=== PATIENT | male | born 1960 | race Caucasian/White ===

== ENCOUNTER → 2022-12-12 14:01 | Outpatient (BNVA) | payer SELFPAY | PROVIDERS: PCP Family Medicine; Visit Provider Family Medicine | DX: R07.9 Chest pain, unspecified (principal); R53.83 Other fatigue; Z79.899 Other long term (current) drug therapy | CPT/HCPCS: 71046; 82306; 82607; 83540; 84403; 84443; 85025 ==

== ENCOUNTER → 2024-01-11 15:46 | Outpatient (BNVA) | payer SELFPAY | PROVIDERS: PCP Family Medicine; Visit Provider Nurse Practitioner Family | DX: R07.9 Chest pain, unspecified (principal); R06.09 Other forms of dyspnea; I10 Essential (primary) hypertension; E78.5 Hyperlipidemia, unspecified; F10.20 Alcohol dependence, uncomplicated; R00.2 Palpitations | CPT/HCPCS: 93005 ==

== ENCOUNTER 2024-01-15 09:27 | Observation (INO) | payer SELFPAY ==
[2024-01-15] VITALS (13 sets, daily range): BP systolic 102–122; BP diastolic 73–82; PULSE 57–116; RESP 13–22; TEMP 36.4–36.9; O2SAT 96–100; BMI 20.9
--- NOTE | 2024-01-15 09:28 | ECG_ITS ---
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 Measurements Intervals [place] Rate: 73 P: 75 [place]: 180 QRS: 67 QRSD: 87 T: 61 QT: 364 QTc: 401 Interpretive Statements SINUS RHYTHM POSSIBLE LEFT ATRIAL ENLARGEMENT [-0.1mV P-WAVE IN V1/V2] POSSIBLE LEFT VENTRICULAR HYPERTROPHY [VOLTAGE CRITERIA PLUS LAE OR QRS WIDENING] No previous ECG available for comparison Electronically Signed On 01-15-2024 9:43:51 CDT by Cameron Villalobos M.D. [id number]
--- NOTE | 2024-01-15 09:28 | XRR_ITS ---
PROCEDURE INFORMATION: Exam: XR Chest Exam date and time: 01/15/2024 9:44 AM Age: 63 years old Clinical indication: Pain; Angina pectoris; Additional info: Chest pain TECHNIQUE: Imaging protocol: Radiologic exam of the chest. Views: 1 view. COMPARISON: CR XR chest 2V* [id number] 12/12/2022 2:06 PM FINDINGS: Lungs: Unremarkable. No consolidation. Pleural spaces: Unremarkable. No pleural effusion. No pneumothorax. Heart/Mediastinum: Unremarkable. No cardiomegaly. Bones/joints: Unremarkable. Other findings: Tiny scattered calcified granulomata. XR/XR chest 1V portable [id number] IMPRESSION: No acute findings.
[2024-01-15 10:25] LABS: Basophils % 0.7 %; Eosinophils # 0.1 10^3/uL (0.0-0.8); Hematocrit 45.9 % (37-53); Lymphocytes # 1.9 10^3/uL (0.8-4.8); Lymphocytes % 30.8 %; Mean Corpuscular HGB Conc 33.6 g/dL (30-55); Mean Corpuscular Hemoglobin 31.2 pg (27-33); Mean Corpuscular Volume 92.9 fl (82-101); Mean Platelet Volume 8.7 fL (7.4-10.4); Monocytes # 0.5 10^3/uL (0.2-0.9); Monocytes % 8.1 %; Neutrophils # 3.56 10^3/uL (1.8-7.7); Neutrophils % 59.1 %; Nucleated Red Blood Cells % 0 %; Platelet Count 228 10^3/cmm (157-399); Red Blood Count 4.94 10^6/uL (3.85-5.65); Red Cell Distribution Width 11.7 % (12.1-15.1); White Blood Count 6.03 10^3/uL (3.29-11.43)
--- NOTE | 2024-01-15 10:36 | ED_ITS ---
HPI - Chest Pain 2 General: Chief Complaint: Chest Pain Stated Complaint: cp Time Seen by Provider: 01/15/24 10:23 Source: patient Mode of arrival: ambulatory Limitations: no limitations History of Present Illness: Patient is a nice 63-year-old male who presents to ED today with a complaint of intermittent chest pain and shortness of breath over the past 3 weeks or so. He feels like symptoms are progressively worsening. He states he is very active and feels like his symptoms are now limiting this. 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 He reports pain in the left side of his chest without radiation. He feels like it is achy and bruised like . Patient has no known history of cardiac disease. He does have a history of hypertension. Recently had labs drawn through PCP does show an elevated LDL. He is not a smoker. MD complaint: chest pain Onset (ago): week(s) Timing of current episode: episodic Prior episodes: Yes Onset: during exertion Pain location: left chest Pain radiation: none Severity: moderate Quality: aching and heaviness Relieving factors: rest Exacerbating factors: exertion Associated symptoms: Reports dyspnea; Deny abdominal pain, fever(s), nausea, palpitations, syncope or vomiting Treatment prior to arrival: none Risk Factors: Coronary artery disease risk factors: hyperlipidemia and hypertension Thoracic aortic dissection risk factors: none Review of Systems 2 Const: Denies: fever(s), chills, body aches, fatigue or malaise Eyes: Denies: change in vision or blurry vision Card: Reports: chest pain and dyspnea on exertion; Denies: palpitations, irregular heart rhythm, edema, swelling of feet/ankles, lightheadedness, syncope, pre-syncope, orthopnea, leg pain with exertion or acrocyanosis Resp: Reports: dyspnea; Denies: productive cough or pain on inspiration GI: Denies: abdominal pain, nausea, vomiting, heartburn or diarrhea : Denies: flank pain, difficulty urinating, dysuria, urinary frequency, urinary urgency or urinary hesitancy Musc: Denies: neck pain, back pain, extremity pain, extremity swelling or joint pain Skin/Breast: Denies: rash Neuro: Denies: headache(s), numbness in extremities, weakness in extremities, sensory changes or dizziness PFSH ED 2 PFSH: Medical History H/O: hypertension H/O hyperlipidemia Surgical History No pertinent past surgical history Family History Mother Cancer Other Aneurysm Hypertension Social History Smoking and tobacco/nicotine status: never used tobacco/nicotine Alcohol intake: current Alcohol intake frequency: 3 or more drinks per day Alcohol type: hard liquor Substance/Drug Use: never Physical Exam 2 Const: COMMON NORMALS: no acute distress, average body habitus, patient oriented x3, no limitations, healthy appearing, alert and well nourished G ENERAL APPEARANCE: cooperative ORIENTATION/CONSCIOUSNESS: Yes awake, Yes oriented to person, Yes oriented to place and Yes oriented to time HENMT: COMMON NORMALS: normocephalic and atraumatic HEAD & SCALP: normal to inspection, normocephalic and atraumatic Neck/C-Spine: COMMON NORMALS: full ROM, no lymphadenopathy, supple and no meningeal signs Chest: COMMONS NORMALS: normal inspection of the chest and normal palpation of entire chest wall Resp: COMMON NORMALS: normal respiratory effort and clear to auscultation bilaterally AUSCULTATION: clear to auscultation bilaterally Cardio: COMMON NORMALS: regular rate and regular rhythm RATE: regular rate RHYTHM: regular rhythm GI: COMMON NORMALS: Normal to inspection, nondistended, normoactive bowel sounds present, Soft to palpation, non-tender, No hepatosplenomegaly present and no masses PALPATION: Yes Soft to palpation and Yes No hepatosplenomegaly present : COMMON NORMALS: Yes no CVA tenderness BLADDER/KIDNEY EXAM: Yes no CVA tenderness Back/Pelvis: COMMON NORMALS: no CVA tenderness and thoracic and lumbar spine normal to inspection Extremity: COMMON NORMALS: normal to inspection GENERAL: Yes normal exam except as noted Neuro: ARGENIS COMA SCALE: document GCS findings Argenis coma scale eye opening: Spontaneous [place] coma scale verbal response: Orientated Argenis coma scale motor response: Obey commands [place] coma scale total score: 15 COMMON NORMALS: patient oriented x3, CN's II-XII intact bilaterally, moves all extremities, no focal motor deficits and no sensory deficits noted S ENSORIUM/ORIENTATION: Yes alert, Yes oriented to person, Yes oriented to place and Yes oriented to time MENINGEAL SIGNS: Yes no meningeal signs Skin: COMMON NORMALS: no rashes or lesions noted GENERAL SKIN EXAM: no rashes or lesions noted Course 2 Consultations: Consultation #1: Dr. Hernandez?accepts hospitalization Vital Signs: Vital signs: Vital Signs Temperature 97.5 F L 01/15/24 09:37 Pulse Rate 66 01/15/24 12:00 Respiratory Rate 22 H 01/15/24 12:00 Blood Pressure 107/73 01/15/24 12:00 Pulse Oximetry 98 01/15/24 12:00 Oxygen Delivery Me thod Room Air 01/15/24 12:00 MDM - Chest Pain Medical Decision Making Patient is a nice 63-year-old male with PMH significant for hyperlipidemia and hypertension here for concerns of chest pain and shortness of breath brought on by exertion and alleviated by rest. He was seen by PCP approximately 4 days ago for similar symptoms. He is here today due to continued worsening. EKG are nonischemic. His troponins are normal. Given his history and risk factors I think it is reasonable for hospitalization for cardiac rule out. Spoke to Dr. Wong who agrees with plan at this time. I spoke to hospitalist Dr. Hernandez who will admit. Medical Records I reviewed the patient's medical records. Lab Data I reviewed the patient's lab results. 01/15/24 10:10 01/15/24 10:10 Radiology Impressions Chest X-Ray 01/15/24 09:28 IMPRESSION: No acute findings. Laboratory Results WBC 6.03 10^3/uL (3.29-11.43) 01/15/24 10:10 RBC 4.94 10^6/uL (3.85-5.65) 01/15/24 10:10 Hgb 15.40 g/dL (11.27-16.99) 01/15/24 10:10 Hct 45.9 % (37-53) 01/15/24 10:10 MCV 92.9 fl (82-101) 01/15/24 10:10 MCH 31.2 pg (27-33) 01/15/24 10:10 MCHC 33.6 g/dL (30-55) 01/15/24 10:10 RDW 11.7 % (12.1-15.1) L 01/15/24 10:10 Plt Count 228 10^3/cmm (157-399) 01/15/24 10:10 MPV 8.7 fL (7.4-10.4) 01/15/24 10:10 Neut % (Auto) 59.1 % 01/15/24 10:10 Lymph % (Auto) 30.8 % 01/15/24 10:10 [place] % (Auto) 8.1 % 01/15/24 10:10 Eos % (Auto) 1.0 % 01/15/24 10:10 Baso % (Auto) 0.7 % 01/15/24 10:10 Neut # (Auto) 3.56 10^3/uL (1.8-7.7) 01/15/24 10:10 Lymph # (Auto) 1.9 10^3/uL (0.8-4.8) 01/15/24 10:10 [place] # (Auto) 0.5 10^3/uL (0.2-0.9) 01/15/24 10:10 Eos # (Auto) 0.1 10^3/uL (0.0-0.8) 01/15/24 10:10 Baso # (Auto) 0.0 10^3/uL (0.0-0.1) 01/15/24 10:10 Nucleated RBC % (auto) 0 % 01/15/24 10:10 Nucleated RBCs # 0.0 /100WBC 01/15/24 10:10 D-Dimer 0.36 ug/mLFEU (0-0.59) 01/15/24 10:10 Sodium 136 mmol/L (136-145) 01/15/24 10:10 Potassium 4.5 mmol/L (3.5-5.1) 01/15/24 10:10 Chloride 98 mmol/L (98-107) 01/15/24 10:10 Carbon Dioxide 26 mmol/L (22-29) 01/15/24 10:10 Anion Gap 16.5 (5-19) 01/15/24 10:10 BUN 22 mg/dL (8-23) 01/15/24 10:10 Creatinine 0.8 mg/dL (0.7-1.2) 01/15/24 10:10 GFR Calculation 98.0 mL/min (90-130) 01/15/24 10:10 Glucose 99 mg/dL (65-115) 01/15/24 10:10 Calculated Osmolality 285 mOsm/kg (285-295) 01/15/24 10:10 Calcium 9.3 mg/dL (8.5-10.5) 01/15/24 10:10 Total Bilirubin 0.7 mg/dL (0.15-1.2) 01/15/24 10:10 AST 26 U/L (0-40) 01/15/24 10:10 ALT 25 U/L (0-41) 01/15/24 10:10 Alkaline Phosphatase 88 U/L (40-130) 01/15/24 10:10 Troponin T Baseline 9 ng/L (0-15) 01/15/24 10:10 Troponin T 120 Minute 9.15 ng/L (0-15) 01/15/24 11:34 Delta Troponin T 0.15 ABS# (0-10) 01/15/24 11:34 Total Protein 7.2 g/dL (6.6-8.7) 01/15/24 10:10 Albumin 4.6 g/dL (3.5-5.2) 01/15/24 10:10 Globulin 2.6 g/dL (1.3-4.6) 01/15/24 10:10 All radiology interpretation(s) finalized by discharge Discharge Plan Discharge Patient Disposition: Admitted As Inpatient Clinical Impression: Chest pain Qualifiers: Chest pain type: unspecified Qualified Code(s): R07.9 - Chest pain, unspecified HTN (hypertension) Qualifiers: Hypertension type: primary hypertension Qualified Code(s): I10 - Essential (primary) hypertension Hyperlipidemia Qualifiers: Hyperlipidemia type: unspecified Qualified Code(s): E78.5 - Hyperlipidemia, unspecified Condition: Stable Prescriptions: No Action lisinopril 40 mg tablet 40 mg PO DAILY sildenafil [Viagra] 25 mg tablet 25 mg PO DAILY MDD ERECTILE DYSFUNCTION PRN (Reason: Edema) Rx Instructions: administer 30 minutes to 4 hours before activity Aspir-81 81 mg Tablet,Delayed Release (Dr/Ec) 81 mg PO DAILY Referrals: Lindsay Hay MD [Primary Care Provider] - Patient Instructions: Opioid Safety, Pain Management Coding Level of Care Code ED Windows Software Engineer for Karlie Rizo
[2024-01-15 10:48] LABS: Alanine Aminotransferase 25 U/L (0-41); Albumin Level 4.6 g/dL (3.5-5.2); Alkaline Phosphatase 88 U/L (40-130); Anion Gap 16.5 (5-19); Aspartate Amino Transferase 26 U/L (0-40); Blood Urea Nitrogen 22 mg/dL (8-23); Calcium 9.3 mg/dL (8.5-10.5); Carbon Dioxide 26 mmol/L (22-29); Chloride 98 mmol/L (98-107); Globulin 2.6 g/dL (1.3-4.6); Glucose 99 mg/dL (65-115); Osmolality Calculated 285 mOsm/kg (285-295); Potassium 4.5 mmol/L (3.5-5.1); Sodium 136 mmol/L (136-145); Total Bilirubin 0.7 mg/dL (0.15-1.2); Total Protein 7.2 g/dL (6.6-8.7)
[2024-01-15 10:51] LABS: Troponin(5th) Baseline 9 ng/L (0-15)
--- NOTE | 2024-01-15 11:28 | ECG_ITS ---
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 Measurements Intervals [place] Rate: 62 P: 55 [place]: 184 QRS: 61 QRSD: 87 T: 58 QT: 402 QTc: 411 Interpretive Statements SINUS RHYTHM MINIMAL VOLTAGE CRITERIA FOR LVH, CONSIDER NORMAL VARIANT [MEETS CRITERIA IN ONE OF: R(aVL), S(V1), R(V5), R(V5/V6)+S(V1)] Compared to ECG 01/15/2024 09:31:31 No significant changes Electronically Signed On 01-15-2024 14:22:03 CDT by Cameron Villalobos M.D. [email or web address] [email or web address] residential centerKrillion[facility].[employer])/store/OM/[id number]
[2024-01-15 12:03] LABS: Troponin 5 2HR 9.15 ng/L (0-15); Troponin 5 2HR Delta 0.15 ABS# (0-10)
[2024-01-15 12:25] LABS: D Dimer 0.36 ug/mLFEU (0-0.59)
--- NOTE | 2024-01-15 13:57 | P.HP_ITS ---
Providers/Chief Complaint 2 Admitting Physician: Kayleen Hernandez MD Primary Care Provider: Lindsay Hay MD Chief Complaint: cp History of Present Illness Jerome Land is a 63 year old male who has been experiencing chest pain for the last 4 to 6 weeks stating that he has been very active throughout his life, lately has been working hard in hot and humid conditions and outdoors during physical activity he would get chest pain that would ease up at rest. He would get hot and sweaty but did not denies any nausea vomiting. He describing the chest pain as getting short of breath. It would last less than 10 minutes. He has not since any syncopal events, does not take any medications, he was on aspirin and lisinopril. Had stress test done 6 to 7 years ago at [place] which was negative. No family history of sudden cardiac arrest. Patient does not have diabetes stating that he has been getting Viagra for erectile dysfunction. Review of Systems 2 Const: Denies: fever(s) Eyes: Denies: change in vision ENMT: Denies: throat pain Card: Reports: chest pain Resp: Reports: dyspnea GI: Denies: abdominal pain : Denies: flank pain Medications/Allergies Home Medications Medication Instructions Recorded Confirmed Last Taken Type lisinopril 40 mg tablet 40 mg PO DAILY 01/11/24 01/15/24 01/15/24 History sildenafil 25 mg tablet (Viagra) 25 mg PO DAILY PRN Edema 01/11/24 01/15/24 Unknown History aspirin 81 mg tablet,delayed 81 mg PO DAILY 01/15/24 01/15/24 01/15/24 History release Allergies Allergy/AdvReac Type Severity Reaction Status Date / Time No Known Allergies Allergy Verified 01/15/24 09:41 PFSH Acute 2 PFSH: Medical History H/O: hypertension H/O hyperlipidemia Surgical History No pertinent past surgical history Family History Mother Cancer Other Aneurysm Hypertension Social History Smoking and tobacco/nicotine status: never used tobacco/nicotine Alcohol intake: current Alcohol intake frequency: 3 or more drinks per day Alcohol type: hard liquor Substance/Drug Use: never Vitals/I&O/Wt Last Vital Signs Temp 97.5 F L 01/15/24 09:37 Pulse 65 01/15/24 13:30 Resp 16 01/15/24 13:30 BP 102/75 01/15/24 13:00 Pulse Ox 99 01/15/24 13:30 O2 Del Method Room Air 01/15/24 13:30 Weight last 48 hrs Weight 70.307 kg Physical Exam 2 Narrative: Awake and alert Euvolemic Well-built Hemodynamically stable Heart rate in 60s Sinus rhythm No active chest pain Nonreproducible pain Nonfocal neuroexam Pleasant cooperative S1, S2 Afebrile Data 01/15/24 10:10 01/15/24 10:10 A&P Assessment and plan (1) Unstable angina: (2) HTN (hypertension): Qualifiers: Hypertension type: primary hypertension Qualified Code(s): I10 - Essential (primary) hypertension (3) Chest pain: Qualifiers: Chest pain type: unspecified Qualified Code(s): R07.9 - Chest pain, unspecified (4) FARRAR (dyspnea on exertion): (5) Fatigue: Plan Unstable angina Multiple risk factors for coronary disease Age, hypertension, chest pain on exertion Will request treadmill stress test in the morning Requested echo EKG showing sinus rhythm echo requested Check B12 TSH, D-dimer unremarkable N.p.o. after midnight DVT prophylaxis: Lovenox Patient carries history of hypertension currently he is not hypotensive I will hold off on continuing lisinopril 40 mg at this time Erectile dysfunction: Patient is stating that Viagra is not helping him either Full code Attestations 2 Medical Necessity Statement*: Anticipating discharge within 48 hours Diagnoses Unstable angina I20.0 Primary hypertension I10 Hypertension type: primary hypertension Chest pain, unspecified type R07.9 Chest pain type: unspecified FARRAR (dyspnea on exertion) R06.09 Fatigue R53.83
--- NOTE | 2024-01-15 14:02 | PC.NURSE ---
attempted report [id number] to espinoza nurse to call back.
--- NOTE | 2024-01-15 14:36 | USCV_ITS ---
Jerome Land Age: 63 Gender: M : 1960 Exam Date: 01/15/2024 17:18 Ordering Phys: Kayleen Hernandez MD Technologist: CT Exam Location[place] [facility] [place] Indication: cp BP: 110 / 80 HR: 62 Rhythm: Sinus Technical Quality: Adequate MEASUREMENTS (Male / Female) Normal Values 2D ECHO LVOT Diameter 2.2 cm LV Ejection Fraction MOD 4C 68.0 % LV Ejection Fraction MOD 2C 68.1 % LV Ejection Fraction 2C AL 69.1 % LA Diameter 3.4 cm RA Systolic Volume 4C AL 34.1 ml RA Systolic Volume 4C MOD 33.0 ml LA Sys Volume AL 33.9 cm cubed LA Sys Volume Index AL 18.0 cm cubed/m squared Aorta at Sinotubular Diameter 2.9 cm IVC Diameter 1.1 cm M-MODE LA Ao Ratio MM 1.1 AV Cusp Separation MM 2.4 cm DOPPLER AV Peak Velocity 124.0 cm/s LVOT Peak Velocity 99.0 cm/s AV Area Cont Eq vti 3.6 cm squared AV Area Cont Eq pk 3.1 cm squared MV Peak Velocity 75.0 cm/s MV Area PHT 3.0 cm squared Mitral E to A Ratio 1.1 TR Peak Velocity 181.0 cm/s TR Peak Gradient 13.1 mmHg TV Peak E Velocity 66.0 cm/s Right Atrial Pressure 3.0 mmHg Pulmonary Artery Systolic Pressu 16.1 mmHg PV Peak Velocity 90.0 cm/s FINDINGS Left Ventricle Normal left ventricular size and systolic function, EF 68%. . No regional wall motion abnormalities. Right Ventricle The right ventricle is normal in size and function. Right Atrium The right atrium is normal in size. Left Atrium The left atrium is normal in size. Mitral Valve Trace mitral valve regurgitation. Aortic Valve Thickened aortic valve. Tricuspid Valve No gross abnormalities noted Pulmonic Valve No gross abnormalities noted Pericardium Normal pericardium without effusion. Aorta Normal ascending aorta dimension. IVC The inferior vena cava appears normal. CONCLUSIONS Normal left ventricular size and systolic function, EF 68%. . No regional wall motion abnormalities. Thickened aortic valve. Trace mitral valve regurgitation. There is no pericardial effusion. There are no intracardiac masses. No similar previous studies are available for comparison Dr Nitin Jeffrey MD [facility] (Electronically Signed) Final Date: 16 January 2024 11:37 S
--- NOTE | 2024-01-15 15:28 | ECG_ITS ---
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 Measurements Intervals [place] Rate: 57 P: 52 [place]: 193 QRS: 59 QRSD: 89 T: 50 QT: 423 QTc: 415 Interpretive Statements SINUS BRADYCARDIA MINIMAL VOLTAGE CRITERIA FOR LVH, CONSIDER NORMAL VARIANT [MEETS CRITERIA IN ONE OF: R(aVL), S(V1), R(V5), R(V5/V6)+S(V1)] Compared to ECG 01/15/2024 11:28:32 Sinus rhythm no longer present Electronically Signed On 01-15-2024 23:27:50 CDT by Cameron Villalobos M.D. [email or web address] App Review [facility].[employer]/store/OM/[id number]
[2024-01-15] MEDS: enoxaparin 40 mg/0.4 mL Syringe SUBCUT (15:36)
[2024-01-15 15:48] LABS: Estmated Average Glucose 114; Hemoglobin A1C 5.6 % (4.0-6.0)
[2024-01-15 15:54] LABS: Thyroid Stimulating Hormone 0.93 uIU/mL (0.27-4.20); Vitamin B12 1541 pg/mL (232-1245)
[2024-01-15 16:24] LABS: Troponin 5 6HR 8.48 ng/L (0-15)
[2024-01-15 16:28] LABS: Troponin 5 6HR Delta -0.52 ng/L (0-12)
--- NOTE | 2024-01-15 17:18 | PC.NURSE ---
US in to perform ECHO at this time. Patient denies needs or pain presently.
--- NOTE | 2024-01-16 | ECG_ITS ---
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 Interpretive Statements NAME OF STUDY: EXERCISE SESTAMIBI STRESS TEST INDICATION: UA, PROCEDURE: The baseline electrocardiogram showed normal sinus rhythm with normal ST-Ts. At the baseline, the patient's blood pressure was 124/90 mm Hg with a heart rate of 71. The patient exercised for 9 minutes on a standard Loyd protocol. Patient attained a maximum heart rate of 148 beats per minute(93% of the maximum predicted heart rate) with a blood pressure at the peak exercise of 153/105 mm Hg. The EKG at the peak exercise revealed no significant changes. Patient did not have any chest pain or any significant arrhythmis with the exercise Sestamibi was injected 1 minute prior to the peak exercise During the recovery phase, there were no new changes. Blood pressure at the end of the recovery phase was 143/95 mm Hg with a heart rate of 103 per minute. CONCLUSION: 1. No significant EKG changes with the [treadmill exercise 2. No exercise-induced chest pain or cardiac arrhythmia 3. Fair exercise tolerance, attained a maximum of 10.2 METs 4. Sestamibi/Sestamibi perfusion results pending; see separate report. Electronically Signed On 01-16-2024 9:56:39 CDT by Nitin Jeffrey M.D. [id number]
[2024-01-16 03:19] VITALS: BP 120/79; PULSE 57; RESP 18; O2SAT 97
[2024-01-16 05:13] VITALS: PULSE 58
[2024-01-16 05:38] LABS: Magnesium 2.2 mg/dL (1.7-2.3)
[2024-01-16 07:58] VITALS: BP 143/95; PULSE 102
[2024-01-16 08:00] VITALS: BP 107/74; PULSE 68; RESP 15; TEMP 36.7; O2SAT 98
[2024-01-16] MEDS: aspirin 81 mg EC Tablet PO (08:23)
--- NOTE | 2024-01-16 09:02 | PC.CHAP ---
Pastoral Care Encounter/Spiritual Assessment Type of Contact [] Declined prescription clerk visit [] Patient/Family/Request visit [] Outpatient visit [] Follow-up visit [] Physician referral [] Code/Alert [x] Routine visit [] Staff referral [] Actively dying [] Patient sleeping [] Family support [] [] Out of room [] Palliative care [] [] Receiving care in room [] Pre-surgical visit [] Trauma [] Long length of stay [] ICU visit [] Other: Relational/Emotional Strength [x] Patient feels connected with others/family/visitors/staff [] Distress [] Loneliness/isolation [] Abandonment Spirituality of Patient [x] Person of Cass [] Attends Sabianism of their Cass [x] Believes in Prayer [x] Reads Bible or Orthodox materials [] There are Spiritual issues to be addressed Md Psychiatry Interventions [x] Prayer [x] Active listening [] Non-anxious presence [x] Spiritual/emotional support [] Crisis/trauma care [] Spiritual counseling [] Bereavement support [] Provided bereavement packet [] Provided Bible/devotional materials [] Provided toy/stuffed animal, coloring book to patient or family member [] Provided Communion [] Anointing/[place] [] Salvation [x] Completed spiritual assessment [] Other: Impact on Illness or Injury [] Angry [] Fearful [] Anxious [] Often cries [] Exhaustion [] Unable to work [] Unable to attend confucianism [] Unable to walk/stand [] Unable to read [] Unable to drive [] Unable to eat/drink [] Unable to sleep [] Unable to be with family [] Patient intubated [] Other: Summary Time spent with patient 5 min
[2024-01-16 10:30] VITALS: PULSE 68; RESP 16; O2SAT 98
--- NOTE | 2024-01-16 10:44 | PM.DCS ---
Discharge Providers Date of Admission: 01/15/24 14:36 Date of Discharge: January 16, 2024 Attending Provider at Admission: Kayleen Hernandez MD Attending Provider at Discharge: Kayleen Hernandez MD Primary Care Provider: Lindsay Hay MD Diagnoses at Discharge Discharge Diagnosis (1) Unstable angina: Status: Acute (2) HTN (hypertension): Status: Acute Qualifiers: Hypertension type: primary hypertension Qualified Code(s): I10 - Essential (primary) hypertension (3) Chest pain: Status: Acute Qualifiers: Chest pain type: unspecified Qualified Code(s): R07.9 - Chest pain, unspecified (4) FARRAR (dyspnea on exertion): Status: Acute (5) Fatigue: Status: Acute Reason for Visit Reason for Visit: cp Hospital Course Hospital Course 63-year-old male who was admitted for management elevation of chest pain which was occurring at exertion, he is physically very active, his A1c level is 5.6, TSH normal, troponin without significant elevation, B12 normal, EKG showed sinus rhythm, sinus treadmill stress test was done next day which was unremarkable. Patient will be discharged home. Patient remained normotensive he does not need lisinopril and aspirin which he started on his own. He tends to follow-up with [facility] in [place] to get Viagra. He is endorsing signs and symptoms of erectile dysfunction. I have given him referral to see a urologist at [facility]. Echo unremarkable. Physical Exam Narrative: Awake and alert GCS 15 Euvolemic On room air Discharge Data Studies Completed and Pending Completed Studies During Hospitalization Category Date Time Status Sestamibi Stress Test Request Routine Exams 01/16/24 06:00 Completed XR chest 1V portable [id number] Urgent Exams 01/15/24 09:28 Completed NM gianfranco perf SPECT r/s* [id number] Routine Nuc Med 01/16/24 14:36 Completed Pending at discharge Category Date Time Status CV. echo complete* [id number] Routine Ultrasound 01/15/24 14:36 Taken Radiology Impressions Chest X-Ray 01/15/24 09:28 IMPRESSION: No acute findings. Laboratory Results WBC 6.03 10^3/uL (3.29-11.43) 01/15/24 10:10 RBC 4.94 10^6/uL (3.85-5.65) 01/15/24 10:10 Hgb 15.40 g/dL (11.27-16.99) 01/15/24 10:10 Hct 45.9 % (37-53) 01/15/24 10:10 MCV 92.9 fl (82-101) 01/15/24 10:10 MCH 31.2 pg (27-33) 01/15/24 10:10 MCHC 33.6 g/dL (30-55) 01/15/24 10:10 RDW 11.7 % (12.1-15.1) L 01/15/24 10:10 Plt Count 228 10^3/cmm (157-399) 01/15/24 10:10 MPV 8.7 fL (7.4-10.4) 01/15/24 10:10 Neut % (Auto) 59.1 % 01/15/24 10:10 Lymph % (Auto) 30.8 % 01/15/24 10:10 Ceiba % (Auto) 8.1 % 01/15/24 10:10 Eos % (Auto) 1.0 % 01/15/24 10:10 Baso % (Auto) 0.7 % 01/15/24 10:10 Neut # (Auto) 3.56 10^3/uL (1.8-7.7) 01/15/24 10:10 Lymph # (Auto) 1.9 10^3/uL (0.8-4.8) 01/15/24 10:10 Ceiba # (Auto) 0.5 10^3/uL (0.2-0.9) 01/15/24 10:10 Eos # (Auto) 0.1 10^3/uL (0.0-0.8) 01/15/24 10:10 Baso # (Auto) 0.0 10^3/uL (0.0-0.1) 01/15/24 10:10 Nucleated RBC % (auto) 0 % 01/15/24 10:10 Nucleated RBCs # 0.0 /100WBC 01/15/24 10:10 D-Dimer 0.36 ug/mLFEU (0-0.59) 01/15/24 10:10 Sodium 136 mmol/L (136-145) 01/15/24 10:10 Potassium 4.5 mmol/L (3.5-5.1) 01/15/24 10:10 Chloride 98 mmol/L (98-107) 01/15/24 10:10 Carbon Dioxide 26 mmol/L (22-29) 01/15/24 10:10 Anion Gap 16.5 (5-19) 01/15/24 10:10 BUN 22 mg/dL (8-23) 01/15/24 10:10 Creatinine 0.8 mg/dL (0.7-1.2) 01/15/24 10:10 GFR Calculation 98.0 mL/min (90-130) 01/15/24 10:10 Glucose 99 mg/dL (65-115) 01/15/24 10:10 Estimat Average Glucose 114 01/15/24 10:10 Hemoglobin A1c 5.6 % (4.0-6.0) 01/15/24 10:10 Calculated Osmolality 285 mOsm/kg (285-295) 01/15/24 10:10 Calcium 9.3 mg/dL (8.5-10.5) 01/15/24 10:10 Magnesium 2.2 mg/dL (1.7-2.3) 01/16/24 04:27 Total Bilirubin 0.7 mg/dL (0.15-1.2) 01/15/24 10:10 AST 26 U/L (0-40) 01/15/24 10:10 ALT 25 U/L (0-41) 01/15/24 10:10 Alkaline Phosphatase 88 U/L (40-130) 01/15/24 10:10 Troponin T Baseline 9 ng/L (0-15) 01/15/24 10:10 Troponin T 120 Minute 9.15 ng/L (0-15) 01/15/24 11:34 Delta Troponin T 0.15 ABS# (0-10) 01/15/24 11:34 Troponin T Hi Sens 6Hr 8.48 ng/L (0-15) 01/15/24 15:45 Troponin T Hi Sens 6Hr Delta -0.52 ng/L (0-12) L 01/15/24 15:45 C-Reactive Protein 3.0 mg/L (0.0-4.9) 01/16/24 04:27 Total Protein 7.2 g/dL (6.6-8.7) 01/15/24 10:10 Albumin 4.6 g/dL (3.5-5.2) 01/15/24 10:10 Globulin 2.6 g/dL (1.3-4.6) 01/15/24 10:10 Vitamin B12 1541 pg/mL (232-1245) H 01/15/24 10:10 TSH 0.93 uIU/mL (0.27-4.20) 01/15/24 10:10 Vitals Last Vital Signs Temp 98.0 F 01/16/24 08:00 Pulse 68 01/16/24 08:00 Resp 15 01/16/24 08:00 BP 107/74 01/16/24 08:00 Pulse Ox 98 01/16/24 08:00 O2 Del Method Room Air 01/16/24 08:00 Discharge Plan Discharge Patient Disposition: Home Condition: Stable Prescriptions: Continued sildenafil [Viagra] 25 mg tablet 25 mg PO DAILY MDD ERECTILE DYSFUNCTION PRN (Reason: Edema) Rx Instructions: administer 30 minutes to 4 hours before activity Discontinued lisinopril 40 mg tablet 40 mg PO DAILY Aspir-81 81 mg Tablet,Delayed Release (Dr/Ec) 81 mg PO DAILY Discharge Orders: Discharge Order (Routine); Ordered 01/16/24 Ordered By: Kayleen Hernandez Referrals: Kiran Henao MD [Referring] - 4-7 days Lindsay Hay MD [Primary Care Provider] - Patient Instructions: Opioid Safety, Pain Management Activity Restrictions/Additional Instructions: Cardiac stress test is negative, your blood pressure has been stable I do not think you need aspirin or lisinopril. For urology erectile dysfunction please see Dr. Henao he has been [facility] Discharge Attestations Time Spent in Discharge Care*: less than 30 min Quality Metrics Clinical Quality Measures [ No reported AMI, CVA or VTE this stay] Coding Level of Care Code Acute Code for Chg Fwd Diagnoses Unstable angina I20.0 Primary hypertension I10 Hypertension type: primary hypertension Chest pain, unspecified type R07.9 Chest pain type: unspecified FARRAR (dyspnea on exertion) R06.09 Fatigue R53.83
[2024-01-16 11:34] VITALS: BP 121/66; PULSE 68; RESP 16; O2SAT 98
--- NOTE | 2024-01-16 13:09 | PC.NURSE ---
patient discharged to home. Instruction provided regarding follow up needs and medication changes. Patient verbalized understanding. Patient left ambulatory to private vehicle.
--- NOTE | 2024-01-16 14:36 | NMCV_ITS ---
NM gianfranco perf SPECT r/s* [id number] Jerome Land Age: 63 Gender: M : 1960 Exam Date: 01/16/2024 14:36 Ordering Phys: Kayleen Hernandez MD Technologist: ELLIOTT Marion Exam Location: [facility] Indications: CP, SOB STRESS TEST Please see separate stress test report in [facility] for full findings IMAGE PROTOCOL Rest/Stress 1 Exercise Day Radiopharmaceutical Dose (mCi) Administration Site Administered by Rest: Tc-99m 10.6 IV ELLIOTT Marion Sestamibi Stress:Tc-99m 32.5 IV ELLIOTT Marion Sestamilittle Rest: 16-Jan-2024 60 Discovery 630 Stress: 16-Jan-2024 30 Discovery 630 Radiopharmaceutical was injected at 85 % maximum heart rate. Images obtained in supine and prone position. SPECT RESULTS Technical Quality: Good Raw Data Analysis: Normal Image Corrections: No attenuation or motion correction applied Summed Stress Score: 0 Summed Rest Score: 2 Summed Difference Score: 0 PERFUSION FINDINGS Fairly uniform myocardial tracer uptake with no significant perfusion normalities. Some attenuation artifacts were noted in the inferior wall region. FUNCTIONAL RESULTS (calculated via Gated SPECT) Stress Image LV EF (%): 75 Stress EDV (mL):75 TID: 0.69 Stress ESV (mL):19 FUNCTIONAL FINDINGS: Segmental wall motion analysis revealing no gross wall motion abnormalities IMPRESSIONS 1. Myocardial perfusion imaging revealing fairly uniform myocardial tracer uptake with no significant perfusion abnormalities 2. Normal LV ejection fraction of 75%. 3. LV wall motion analysis revealing no gross wall motion abnormalities. 4. Normal LV volume Low probability for coronary ischemia, based on the above findings Dr Nitin Jeffrey MD FACC (Electronically Signed) Final Date: 16 January 2024 09:53 S
== END 2024-01-16 13:10 | disposition home or self-care (01) ==
LOC: ER 12:55 → CSU 01-16 06:49
PROVIDERS: Admitting Provider Internal Medicine; Emergency Provider Physician Assistant; PCP Family Medicine; Visit Provider Internal Medicine
DX: I20.0 Unstable angina (principal); I10 Essential (primary) hypertension; R06.09 Other forms of dyspnea; R53.83 Other fatigue; E78.5 Hyperlipidemia, unspecified
CPT/HCPCS: 36415; 71045; 78452; 80053; 82607; 83036; 83735; 84443; 84484; 85025; 85378; 86140; 93005; 93017; 93306; 96372; 96375; 99285; A9500; G0378; J1650

== ENCOUNTER → 2024-06-10 10:37 | Outpatient (BNVA) | payer BC, SELFPAY | PROVIDERS: PCP Nurse Practitioner Family; Visit Provider Nurse Practitioner Family | DX: I10 Essential (primary) hypertension (principal); Z12.5 Encounter for screening for malignant neoplasm of prostate; Z12.11 Encounter for screening for malignant neoplasm of colon | CPT/HCPCS: 80053; 80061; 84443; 85025; G0103 ==

== ENCOUNTER 2024-06-14 07:40 | Outpatient (CLI) | payer BC, SELFPAY ==
--- NOTE | 2024-06-14 08:00 | US_ITS ---
WS: [id number] US pelvic complete* [id number] HISTORY: R10.31 - Right lower quadrant pain COMPARISON: None available. Pelvic ultrasound is directed to the inguinal regions in the area of pain. Area of concern is in the RIGHT groin. No mass or fluid collection is identified. No peristalsing loop of bowel. No definite he rnia is identified by ultrasound. US/US pelvic complete* [id number] IMPRESSION: No hernia identified by ultrasound at the RIGHT inguinal canal. For continued c oncern for hernia consider CT evaluation of the pelvis.
--- NOTE | 2024-06-14 08:13 | XR_ITS ---
WS: [email or web address] Exam: XR shoulder LT min 2V* [id number] Date/Time of Exam: 06/14/2024 8:13 AM Reason For Exam: M25.512 - Pain in left shoulder No fracture. Moderate DJD of the glenohumeral joint and the AC joint. Normal soft tissues. XR/XR shoulder LT min 2V* [id number] IMPRESSION: 1. Moderate degenerative changes.
--- NOTE | 2024-06-14 08:13 | XR_ITS ---
WS: [email or web address] Exam: XR cervical spine 3V* [id number] Date/Time of Exam: 06/14/2024 8:13 AM Reason For Exam: M54.2 - Cervicalgia No fracture or dislocation. Disc spaces are preserved. Moderate facet DJD at all levels. Normal javid anish soft tissues. The odontoid is intact. XR/XR cervical spine 3V* [id number] IMPRESSION: 1. Moderate facet DJD. No fracture or malalignment.
--- NOTE | 2024-06-14 08:13 | XR_ITS ---
WS: [email or web address] Exam: XR lumbar spine 2-3V* [id number] Date/Time of Exam: 06/14/2024 8:13 AM Reason For Exam: M54.50 - Low back pain, unspecified No acute fracture or dislocation. Mild narrowing of the L4-5 disc. Facet arthropathy and mild spondyl osis at all levels. Osteopenia. Mild dextroscoliosis. XR/XR lumbar spine 2-3V* [id number] IMPRESSION: 1. No fracture or malalignment. 2. Degenerative changes, mild scoliosis and osteopenia.
== END 2024-06-14 07:41 | disposition home or self-care (01) ==
LOC: RAD 07:40
PROVIDERS: PCP Nurse Practitioner Family; Visit Provider Nurse Practitioner Family
DX: M19.012 Primary osteoarthritis, left shoulder (principal); M47.896 Other spondylosis, lumbar region; M85.80 Other specified disorders of bone density and structure, unspecified site; M47.892 Other spondylosis, cervical region; R10.31 Right lower quadrant pain; R10.32 Left lower quadrant pain
CPT/HCPCS: 72040; 72100; 73030; 76856